=== PATIENT | male | born 1980 | race Caucasian/White ===

== ENCOUNTER 2019-12-20 23:27 | Inpatient (IN) | payer SELFPAY ==
[~2019-12-20] VITALS: Ht 177.8 cm; Wt 86.2 kg
[~2019-12-20 23:27] MED LIST: KEFLEX500 MG PO; KEFTAB500 MG PO; VICODIN 5/500 505 MG PO
[2019-12-20 23:36] VITALS: BP 127/80
[2019-12-21 00:28] LABS: BASO # 0.1 10*3/uL (0.0-0.1); BASO % 0.6 % (0.0-1.0); EOS # 0.5 10*3/uL (0.0-0.4); EOS % 4.3 % (1.0-4.0); HEMATOCRIT 41.7 % (42.0-52.0); LYMPH # 1.9 10*3/uL (1.3-4.4); LYMPH % 17.8 % (27.0-41.0); MEAN CORPUSCULAR HGB 31.7 pg (27.0-31.0); MEAN CORPUSCULAR HGB CONC 33.3 g/dl (33.0-37.0); MEAN PLATELET VOLUME 11.8 fl (9.6-12.3); MONO # 0.9 10*3/uL (0.1-1.0); MONO % 8.5 % (3.0-9.0); NEUT # 7.4 10*3/uL (2.3-7.9); NEUT % 68.4 % (47.0-73.0); PLATELET COUNT AUTOMATED 222 10*3/uL (130-400); RED BLOOD COUNT 4.39 10*6/uL (4.50-5.90); RED CELL DISTRI WIDTH 13.2 % (0-14.5); WHITE BLOOD COUNT 10.8 10*3/uL (4.8-10.8)
[2019-12-21 00:41] LABS: ACT PARTIAL THROMBO TIME 32.4 SECONDS (20.0-32.1)
[2019-12-21 00:44] LABS: ALBUMIN 3.8 gm/dl (3.1-4.5); ALKALINE PHOSPHATASE 77 U/L (45-117); BUN 13 mg/dl (7-24); CHLORIDE 109 mmol/L (98-107); CREATININE 1.02 mg/dL (0.70-1.30); LIPASE 71 U/L (73-393); POTASSIUM 3.3 mmol/L (3.5-5.1); SGOT/AST 8 IU/L (3-35); SGPT/ALT 16 U/L (12-78); SODIUM 141 mmol/L (136-145); TOTAL PROTEIN 7.4 gm/dL (6.4-8.2)
[2019-12-21 02:19] VITALS: BP 113/58
--- NOTE | 2019-12-21 02:19 | NUR ---
Time: 218 A 39 year old MALE admitted to under services of ALEJANDRO PEARCE DO. Pt. arrived via bed from ER. Chief complaint: ABSCESS. SANDRA DE LA CRUZ L
--- NOTE | 2019-12-21 02:20 | NUR ---
TOBACCO LOCKED IN [place] IN ROOM.
--- NOTE | 2019-12-21 02:38 | NUR ---
PATIENT MEDICATED WITH NORCO FOR C/O LLE PAIN 08/20. WILL MONITOR
--- NOTE | 2019-12-21 02:46 | NUR ---
PATIENT TAKES NO HOME MEDS.
--- NOTE | 2019-12-21 03:03 | NUR ---
AWARE THAT PATIENT TAKED NO HOME MEDS. ALSO, INFORMED OF ABSCESS AREAS, STATED WOUND CARE NURSE TO RECOMMEND ORDERS.
[2019-12-21 06:20] LABS: BASO # 0.1 10*3/uL (0.0-0.1); BASO % 0.6 % (0.0-1.0); EOS # 0.6 10*3/uL (0.0-0.4); EOS % 5.2 % (1.0-4.0); LYMPH # 2.4 10*3/uL (1.3-4.4); LYMPH % 21.9 % (27.0-41.0); MEAN CELL VOLUME 95.7 fl (80.0-94.0); MEAN CORPUSCULAR HGB 32.2 pg (27.0-31.0); MEAN CORPUSCULAR HGB CONC 33.7 g/dl (33.0-37.0); MEAN PLATELET VOLUME 12.5 fl (9.6-12.3); MONO # 1.2 10*3/uL (0.1-1.0); MONO % 10.9 % (3.0-9.0); NEUT # 6.5 10*3/uL (2.3-7.9); NEUT % 60.9 % (47.0-73.0); PLATELET COUNT AUTOMATED 214 10*3/uL (130-400); RED BLOOD COUNT 3.97 10*6/uL (4.50-5.90); RED CELL DISTRI WIDTH 13.3 % (0-14.5); WHITE BLOOD COUNT 10.7 10*3/uL (4.8-10.8)
[2019-12-21 06:43] LABS: ALBUMIN 3.2 gm/dl (3.1-4.5); BUN 11 mg/dl (7-24); CHLORIDE 111 mmol/L (98-107); CREATININE 0.84 mg/dL (0.70-1.30); POTASSIUM 3.3 mmol/L (3.5-5.1); SGOT/AST 9 IU/L (3-35); SGPT/ALT 13 U/L (12-78); SODIUM 141 mmol/L (136-145); TOTAL PROTEIN 6.4 gm/dL (6.4-8.2)
[2019-12-21 06:44] LABS: ALKALINE PHOSPHATASE 65 U/L (45-117)
[2019-12-21 08:00] VITALS: BP 100/52
--- NOTE | 2019-12-21 08:34 | NUR ---
Spoke with Dr. Omar michelearding patient wound care recommendations and notified him that Dr. Mijares was aware as well he states he will see the patient and make that decision.
--- NOTE | 2019-12-21 09:00 | NUR ---
Deburring Technician in to talk to patient. Patient states lives at home with sister. There are no steps in the home. Physician: none [facility]acy: [facility]: [facility] Patient's level of ADLs: INDEPENDENT Patient has working utilities: all working DME: none Follow-up physician's appointment after d/c: will be made by hospitalist nurse director with doctor of patient's choice Does patient want to access PORTAL?: no Discharge plan discussed with patient, he states he lives at home with his sister, he is independent in adls and ambulation, he states he will return home when discharged and denies any home needs, case management will follow. JOSE R PUTNAM
--- NOTE | 2019-12-21 09:20 | NUR ---
PT CURRENTLY OFF FLOOR VIA WHEELCHAIR TO US.
--- NOTE | 2019-12-21 09:58 | NUR ---
NORCO 5/325 MG GIVEN FOR C/O PAIN TO MAINLY LEFT KNEE,11/20.
--- NOTE | 2019-12-21 11:19 | NUR ---
DR CUELLAR'S ANSWERING SERVICE NOTIFIED OF NEW CONSULT FOR ABSCESS TO LEFT KNEE.
[2019-12-21 12:00] VITALS: BP 111/68
--- NOTE | 2019-12-21 14:45 | NUR ---
DR CUELLAR WAS IN ROOM AND PERFORMED BEDSIDE DEBRIDEMENT. UNABLE TO PERFORM PRE DEBRIDEMENT PHOTOS D/T FACT I WAS NOT PRESENT AT THE TIME PROCEDURE STARTED. WOUND CULTURE OBTAINED AND SENT PER DR CUELLAR'S ORDER FROM LEFT KNEE. WOUND CARE PHOTOS AND MEASUREMENT'S OBTAINED PER PROTOCOL. TOLERATED WELL PER PT. DRESSING APPLIED PER PHYSICIAN ORDER.VOICES NO OTHER NEEDS AT THIS TIME. CALL LIGHT IN REACH.
[2019-12-21 16:00] VITALS: BP 110/61
--- NOTE | 2019-12-21 16:47 | NUR ---
NORCO 5/325 MG GIVEN FOR C/O PAIN TO LEFT KNEE AREA.11/20.
--- NOTE | 2019-12-21 19:48 | NUR ---
PATIENT RESTING IN BED WITH NO NEEDS MADE. DENIES PAIN. BED IN LOWEST POSITION, CALL LIGHT IN REACH
[2019-12-21 20:00] VITALS: BP 107/63
--- NOTE | 2019-12-21 23:58 | NUR ---
MEDICATED WITH PRN NORCO FOR C/O PAIN. WILL MONITOR
[2019-12-22] VITALS: BP 107/64
--- NOTE | 2019-12-22 00:58 | NUR ---
MEDICATION EFFECTIVE PER PATIENT
[2019-12-22 06:47] LABS: BASO # 0.1 10*3/uL (0.0-0.1); EOS # 0.5 10*3/uL (0.0-0.4); EOS % 6.7 % (1.0-4.0); HEMATOCRIT 38.1 % (42.0-52.0); LYMPH # 2.3 10*3/uL (1.3-4.4); LYMPH % 33.2 % (27.0-41.0); MEAN CELL VOLUME 95.7 fl (80.0-94.0); MEAN CORPUSCULAR HGB 30.9 pg (27.0-31.0); MEAN CORPUSCULAR HGB CONC 32.3 g/dl (33.0-37.0); MEAN PLATELET VOLUME 12.4 fl (9.6-12.3); MONO # 0.8 10*3/uL (0.1-1.0); MONO % 11.8 % (3.0-9.0); NEUT # 3.2 10*3/uL (2.3-7.9); NEUT % 47.2 % (47.0-73.0); PLATELET COUNT AUTOMATED 197 10*3/uL (130-400); RED BLOOD COUNT 3.98 10*6/uL (4.50-5.90); RED CELL DISTRI WIDTH 13.2 % (0-14.5); WHITE BLOOD COUNT 6.9 10*3/uL (4.8-10.8)
[2019-12-22 07:29] LABS: CHLORIDE 112 mmol/L (98-107); POTASSIUM 3.9 mmol/L (3.5-5.1); SODIUM 141 mmol/L (136-145)
[2019-12-22 07:43] LABS: BUN 7 mg/dl (7-24); CREATININE 0.77 mg/dL (0.70-1.30)
[2019-12-22 08:00] VITALS: BP 108/58
--- NOTE | 2019-12-22 09:00 | NUR ---
case management visits with patient, he will return home when discharged, he will need scripts in the hospital pharmacy due to a lowered cost, no other needs at this time
[2019-12-22] MEDS ORDERED: KEFLEX500 M1 PO (10:51)
[2019-12-22] MEDS ORDERED: DOXYCYCLINE100 M3 PO (10:51)
--- NOTE | 2019-12-22 13:21 | NUR ---
Discharge instructions reviewed with patient/family. Patient receptive and verbalizes understanding. Follow-up care arranged. Written instructions given to patient/family. ANALILIA CRAVEN
== END 2019-12-22 13:21 | disposition home or self-care (01) | DRG 603 ==
LOC: ED 23:27 → 4E 12-21 01:02 → EDHOLD 12-21 01:02 → 4E 12-21 02:04
PROVIDERS: Family Medicine; Internal Medicine; Nurse Practitioner Family; ADMIT Internal Medicine; ATTEND Internal Medicine
PROC: 0H9LXZZ Drainage of Left Lower Leg Skin, External Approach (ICD-10-PCS; principal; 2019-12-21)
DX: L03.116 Cellulitis of left lower limb (principal); D68.9 Coagulation defect, unspecified; E87.6 Hypokalemia; E87.8 Other disorders of electrolyte and fluid balance, not elsewhere classified; E66.3 Overweight; L02.416 Cutaneous abscess of left lower limb; D53.9 Nutritional anemia, unspecified; F17.210 Nicotine dependence, cigarettes, uncomplicated; R00.0 Tachycardia, unspecified; R79.82 Elevated C-reactive protein (CRP); B96.89 Other specified bacterial agents as the cause of diseases classified elsewhere; Z68.27 Body mass index [BMI] 27.0-27.9, adult; Z71.6 Tobacco abuse counseling

== ENCOUNTER 2022-10-27 17:19 | Emergency (ER) | payer OTHER ==
[~2022-10-27] VITALS: Wt 95.3 kg
[~2022-10-27 17:19] MED LIST changes: +DOXYCYCLINE100 M3 PO; +KEFLEX500 M1 PO
== END 2022-10-27 22:04 | disposition left against medical advice (07) ==
LOC: ED 17:19
DX: S53.104A Unspecified dislocation of right ulnohumeral joint, initial encounter (principal); F17.200 Nicotine dependence, unspecified, uncomplicated; Z79.2 Long term (current) use of antibiotics; W17.89XA Other fall from one level to another, initial encounter; Y93.89 Activity, other specified; Y92.89 Other specified places as the place of occurrence of the external cause; Y99.8 Other external cause status

== ENCOUNTER 2024-03-08 02:37 | Emergency (ER) | payer OTHER ==
[~2024-03-08] VITALS: Ht 177.8 cm; Wt 99.8 kg
[2024-03-08] MEDS ORDERED: ZITHROMAX250 MG PO (03:12)
[2024-03-08] MEDS ORDERED: PREDNISONE20 M1 PO (03:12)
[2024-03-08] MEDS ORDERED: methylPREDNISolone sod succ 125 MG VIAL IM ONE (03:40)
== END 2024-03-08 04:35 | disposition home or self-care (01) ==
LOC: ED 02:37
DX: J40 Bronchitis, not specified as acute or chronic (principal); F17.200 Nicotine dependence, unspecified, uncomplicated; Z98.890 Other specified postprocedural states